=== PATIENT | male | born 1980 | race Caucasian/White ===

== ENCOUNTER 2017-05-26 18:24 | Emergency (ER) | payer BC ==
[~2017-05-26] VITALS: Ht 175.3 cm; Wt 80.0 kg
[2017-05-26 18:30] VITALS: BP 131/82; PULSE 75; RESP 16; TEMP 98.1; O2SAT 100
--- NOTE | 2017-05-26 18:59 | PD ---
HPI Chief Complaint: Fall Time Seen by Provider: 18:38 Travel History International Travel<30 days: No Contact w/Intl Traveler<30days: No Traveled to known affect area: No History of Present Illness HPI 36-year-old male presents emergency department for evaluation of low back pain and right chest wall pain after he fell off the roof yesterday. Says that he fell 9-10 feet landing on his right hip, somewhat breaking his fall with his right foot. Says his low back pain is worse with movement, decreases with rest. Says the pain as mild to moderate in nature. Pain is nonradiating. Also states that he is having some tenderness along the posterior left chest wall in the midthoracic region. Says he has discomfort with moving but denies significant pain. he denies loss of bowel or bladder function, fever, chills, history of IV drug use, saddle anesthesia. He denies any head trauma, neck pain , leg pain, weakness, radicular type of pain. [facility] Social History Alcohol Use: Yes Tobacco Use: Yes Substance Use: No Allergies-Medications (Allergen,Severity, Reaction): Coded Allergies: No Known Allergies (Verified Allergy, Unknown, 05/26/17) Reported Meds & Prescriptions Reported Meds & Active Scripts Active No Active Prescriptions or Reported Medications Review of Systems Except as stated in HPI: all other systems reviewed are Neg Physical Exam Narrative GENERAL: Well-nourished, well-developed patient. SKIN: Focused skin assessment warm/dry. HEAD: Normocephalic. EYES: No scleral icterus. No injection or drainage. EOMI, PERRLA NECK: Supple, trachea midline. No JVD or lymphadenopathy. No midline tenderness CARDIOVASCULAR: Regular rate and rhythm without murmurs, gallops, or rubs. RESPIRATORY: Breath sounds equal bilaterally. No accessory muscle use. GASTROINTESTINAL: Abdomen soft, non-tender, nondistended. No CVA tenderness MUSCULOSKELETAL: No cyanosis, or edema. BACK: No CVA tenderness. No rash. No point tenderness on palpation of the spine. He did have tenderness just to the right of the lumbar spine with some sort of loose body. I am unsure if this is chronic or not. Patient is not sure either. Grade 5/5 lower extremity strength, neurovascular intact. Left posterior chest wall-minimally tender to palpation without step-offs or deformities. BACK: Nontender without obvious deformity. No CVA tenderness. Data Data Last Documented VS Vital Signs Date Time Temp Pulse Resp B/P (MAP) Pulse Ox O2 Delivery O2 Flow Rate FiO2 05/26/17 18:30 98.1 75 16 131/82 (98) 100 Orders MDM Medical Decision Making Medical Screen Exam Complete: Yes Emergency Medical Condition: Yes Differential Diagnosis Lumbar fracture, lumbar strain, neck strain, rib fracture, thoracic strain, muscle spasms Narrative Course 36-year-old male presents emergency department for evaluation of low back pain and right chest wall pain after he fell off the roof yesterday. Says that he fell 9-10 feet landing on his right hip, somewhat breaking his fall with his right foot. Says his low back pain is worse with movement, decreases with rest. Says the pain as mild to moderate in nature. Pain is nonradiating. Also states that he is having some tenderness along the posterior left chest wall in the midthoracic region. Says he has discomfort with moving but denies significant pain. he denies loss of bowel or bladder function, fever, chills, history of IV drug use, saddle anesthesia. He denies any head trauma, neck pain , leg pain, weakness, radicular type of pain. Vital signs stable. I discussed my findings and advised on imaging studies. I initially ordered chest x-ray and lumbar CT as patient did appear to have some tenderness very close to the spine and he did appear to have some sort of loose body present. Patient noticed a loose body as well and did not know if this was chronic or not. Unfortunately, when I walked away patient left without discussing with me. I was notified by the triage nurse that patient left because he did not want imaging studies. Patient did not indicate this to me as we are discussing this. I also offered ibuprofen and Robaxin for outpatient use and patient did not want the Robaxin as he may feel drowsy. I canceled the imaging studies as he left before they were done. Patient left AGAINST MEDICAL ADVICE although I was unable to discuss the risk versus benefit of leaving AGAINST MEDICAL ADVICE. Diagnosis Primary Impression: Back pain Qualified Codes: M54.5 - Low back pain Additional Impression: Left against medical advice Referrals: Primary Care Physician Scripts No Active Prescriptions or Reported Meds Disposition: AGAINST MEDICAL ADVICE Condition: Stable Leah Flanagan May 26, 2017 18:59
[2017-05-27] MEDS ORDERED: TRAM50TA PO (00:10)
== END 2017-05-26 19:10 | disposition home or self-care (01) ==
LOC: PHEFT 18:24
DX: M54.5 Low back pain (principal); R07.89 Other chest pain; Z72.0 Tobacco use; W13.2XXA Fall from, out of or through roof, initial encounter
CPT/HCPCS: 99281

== ENCOUNTER 2017-05-26 19:19 | Emergency (ER) | payer BC ==
[2017-05-26 20:14] VITALS: BP 132/77; PULSE 77; RESP 16; TEMP 98.3; O2SAT 99
--- NOTE | 2017-05-26 21:11 | PD ---
HPI Chief Complaint: Fall Time Seen by Provider: 21:05 Travel History International Travel<30 days: No Contact w/Intl Traveler<30days: No Traveled to known affect area: No History of Present Illness HPI This patient complains of right low back pain. Yesterday he fell off a roof approximately 10 foot to the ground. He landed on grass. He has been ambulatory. He has persistent right low back pain. Severity is moderate. Worse with movement. Did not strike his head. Is no head or neck pain. His back pain is not midline. No alleviating factors. Duration is one day. [facility] Past Medical History Medical History: Denies Significant Hx Immunizations Current: Yes Past Surgical History Surgical History: No Previous Surgery Social History Alcohol Use: Yes Tobacco Use: Yes Substance Use: No Allergies-Medications (Allergen,Severity, Reaction): Coded Allergies: No Known Allergies (Verified Allergy, Unknown, 05/26/17) Reported Meds & Prescriptions Reported Meds & Active Scripts Active No Active Prescriptions or Reported Medications Review of Systems General / Constitutional: No: Fever Eyes: No: Visual changes HENT: No: Headaches Cardiovascular: No: Chest Pain or Discomfort Respiratory: No: Shortness of Breath Gastrointestinal: No: Abdominal Pain Genitourinary: No: Dysuria Musculoskeletal: Positive: Pain Skin: No Rash Neurologic: No: Weakness Psychiatric: No: Depression Endocrine: No: Polydipsia Hematologic/Lymphatic: No: Easy Bruising Physical Exam Narrative GENERAL: Well-nourished, well-developed patient with back pain . SKIN: Focused skin assessment reveals no rash and nodules. Skin is Warm and dry. HEAD: Atraumatic. Normocephalic. EYES: Pupils equal and round. No scleral icterus. No injection or drainage. ENT: No nasal bleeding or discharge. Mucous membranes pink and moist. NECK: Trachea midline. No JVD. CARDIOVASCULAR: Regular rate and rhythm. No murmur appreciated. RESPIRATORY: No accessory muscle use. Clear to auscultation. Breath sounds equal bilaterally. GASTROINTESTINAL: Abdomen soft, non-tender, nondistended. Hepatic and splenic margins not palpable. MUSCULOSKELETAL: No obvious deformities. No clubbing. No cyanosis. No edema. No midline tenderness. There is right lumbar and CVA tenderness. No bruising or swelling. NEUROLOGICAL: Awake and alert. No obvious cranial nerve deficits. Motor grossly within normal limits. Normal speech. PSYCHIATRIC: Appropriate mood and affect; insight and judgment normal. Data Data Last Documented VS Vital Signs Date Time Temp Pulse Resp B/P (MAP) Pulse Ox O2 Delivery O2 Flow Rate FiO2 05/26/17 20:14 98.3 77 16 132/77 (95) 99 Orders Orders Spine, Lumbar - Ltd (Ap & Lat) (05/26/17 ) Shoulder, Complete (>2vws) (05/26/17 ) Chest, Single Ap (05/26/17 ) Pelvis, Ap Only (Routine) (05/26/17 ) Ct Abd/Pel W Iv Contrast(Rout) (05/26/17 ) Complete Blood Count With Diff (05/26/17 21:06) Basic Metabolic Panel (Bmp) (05/26/17 21:06) Prothrombin Time / Inr (Pt) (05/26/17 21:06) Act Partial Throm Time (Ptt) (05/26/17 21:06) Iv Access Insert/Monitor (05/26/17 21:06) Iohexol 350 Inj (Omnipaque 350 Inj) (05/26/17 22:19) Labs Laboratory Tests Test 05/26/17 21:20 White Blood Count 8.3 TH/MM3 Red Blood Count 4.48 MIL/MM3 Hemoglobin 14.3 GM/DL Hematocrit 42.1 % Mean Corpuscular Volume 93.9 FL Mean Corpuscular Hemoglobin 31.9 PG Mean Corpuscular Hemoglobin Concent 34.0 % Red Cell Distribution Width 14.2 % Platelet Count 240 TH/MM3 Mean Platelet Volume 10.5 FL Neutrophils (%) (Auto) 55.8 % Lymphocytes (%) (Auto) 33.9 % Monocytes (%) (Auto) 7.5 % Eosinophils (%) (Auto) 2.0 % Basophils (%) (Auto) 0.8 % Neutrophils # (Auto) 4.6 TH/MM3 Lymphocytes # (Auto) 2.8 TH/MM3 Monocytes # (Auto) 0.6 TH/MM3 Eosinophils # (Auto) 0.2 TH/MM3 Basophils # (Auto) 0.1 TH/MM3 CBC Comment DIFF FINAL Differential Comment Prothrombin Time 11.4 SEC Prothromb Time International Ratio 1.1 RATIO Activated Partial Thromboplast Time 28.0 SEC Blood Urea Nitrogen 14 MG/DL Creatinine 0.97 MG/DL Random Glucose 85 MG/DL Calcium Level 9.3 MG/DL Sodium Level 140 MEQ/L Potassium Level 4.4 MEQ/L Chloride Level 105 MEQ/L Carbon Dioxide Level 28.4 MEQ/L Anion Gap 7 MEQ/L Estimat Glomerular Filtration Rate 88 ML/MIN [facility] Medical Decision Making Medical Screen Exam Complete: Yes Emergency Medical Condition: Yes Medical Record Reviewed: Yes Differential Diagnosis Kidney laceration, contusion, spinous process fracture, rib fracture, pelvic fracture Narrative Course I have reviewed the patient's electronic medical record. This patient had a mechanism which could lead to serious or cortical injury. Have ordered extensive trauma workup. This will include labs and a chest and pelvis x-ray and CT of abdomen and pelvis. Initial vitals are normal. He does not a trauma alert criteria. His injury is 24 hours old. I reviewed all of his x-rays. They are negative for fracture CT of abdomen and pelvis is negative for intra-abdominal organ injury. CBC and metabolic studies are normal Stable for outpatient follow-up. I wrote some tramadol for pain relief Diagnosis Primary Impression: Fall from roof as cause of accidental injury Additional Impression: Back pain Qualified Codes: M54.5 - Low back pain Additional Instructions: The patient was advised to follow up with their physician and return if they worsen. The patient was warned about potential sedation for the medications they will receive on prescription. Med/Other Pt SpecificInfo: Prescription(s) given Scripts Tramadol (Tramadol) 50 Mg Tab 50 MG PO Q6H Y for PAIN, #12 TAB 0 Refills Prov: Panda Moore MD 05/27/17 Disposition: 01 DISCHARGE HOME Condition: Stable Panda Moore MD May 26, 2017 21:11
--- NOTE | 2017-05-26 21:16 | RADRPT ---
EXAM DATE/TIME: 05/26/2017 20:49 [facility] COMPARISON: No previous studies available for comparison. INDICATIONS : Right shoulder pain post fall from roof yesterday MEDICAL HISTORY : None. SURGICAL HISTORY : None. ENCOUNTER: Initial ACUITY: 1 day PAIN SCORE: 8/10 LOCATION: Right entire shoulder FINDINGS: Multiple view examination of the right shoulder demonstrates no evidence of fracture or dislocation. The glenohumeral and acromioclavicular joints are maintained. There is normal range of motion betwe en internal and external rotation. Bony mineralization is normal. CONCLUSION: No acute disease. Christiano Corbin MD on May 26, 2017 at 21:13 Board Certified Radiologist. This report was verified electronically.
--- NOTE | 2017-05-26 21:23 | RADRPT ---
EXAM DATE/TIME: 05/26/2017 20:54 [facility] COMPARISON: No previous studies available for comparison. INDICATIONS : Lower back pain post fall from roof yesterday MEDICAL HISTORY : None. SURGICAL HISTORY : None. ENCOUNTER: Initial ACUITY: 1 day PAIN SCORE: 8/10 LOCATION: Right lumbar spine FINDINGS: Two view examination was performed. There are five non-rib bearing vertebral bodies. The vertebral bodies are in normal alignment without evidence of subluxation or scoliosis. The disc spaces are rae ntained. The pedicles are intact. Bony mineralization is normal. No fracture is identified. CONCLUSION: Normal examination for a patient of this age. Christiano Corbin MD on May 26, 2017 at 21:20 Board Certified Radiologist. This report was verified electronically.
--- NOTE | 2017-05-26 21:30 | RADRPT ---
EXAM DATE/TIME: 05/26/2017 21:11 [facility] COMPARISON: No previous studies available for comparison. INDICATIONS : Pain. Post fall from roof yesterday. MEDICAL HISTORY : None. SURGICAL HISTORY : None. ENCOUNTER: Initial ACUITY: 2 days PAIN SCORE: 1/10 LOCATION: Bilateral chest FINDINGS: A single view of the chest demonstrates the lungs to be symmetrically aerated without evidence of mas s, infiltrate or effusion. The cardiomediastinal contours are unremarkable. Osseous structures are intact. CONCLUSION: No acute disease. Christiano Corbin MD on May 26, 2017 at 21:27 Board Certified Radiologist. This report was verified electronically.
--- NOTE | 2017-05-26 21:32 | RADRPT ---
EXAM DATE/TIME: 05/26/2017 21:13 [facility] COMPARISON: No previous studies available for comparison. INDICATIONS : Pain post fall from roof yesterday. MEDICAL HISTORY : None. SURGICAL HISTORY : None. ENCOUNTER: Initial ACUITY: 2 days PAIN SCORE: 1/10 LOCATION: pelvis. FINDINGS: A single frontal view of the pelvis demonstrates no evidence of fracture. The bony pelvic ring is in tact. Bony mineralization is normal. The soft tissues are intact. CONCLUSION: Unremarkable examination of the pelvis. Christiano Corbin MD on May 26, 2017 at 21:29 Board Certified Radiologist. This report was verified electronically.
[2017-05-26 21:45] LABS: AUTOMATED NEUTROPHIL # 4.6 TH/MM3 (1.8-7.7); BASOPHIL # 0.1 TH/MM3 (0-0.2); BASOPHIL % 0.8 % (0.0-2.0); EOSINOPHIL # 0.2 TH/MM3 (0-0.4); HEMATOCRIT 42.1 % (39.0-51.0); HEMOGLOBIN 14.3 GM/DL (13.0-17.0); LYMPH % 33.9 % (9.0-44.0); LYMPHOCYTE # 2.8 TH/MM3 (1.0-4.8); MEAN CELL VOLUME 93.9 FL (80.0-100.0); MEAN CORPUSCULAR HEMOGLOBIN 31.9 PG (27.0-34.0); MEAN PLATELET VOLUME 10.5 FL (7.0-11.0); MONO % 7.5 % (0.0-8.0); MONOCYTE # 0.6 TH/MM3 (0-0.9); NEUT % 55.8 % (16.0-70.0); PLATELET COUNT 240 TH/MM3 (150-450); RED BLOOD COUNT 4.48 MIL/MM3 (4.50-5.90); RED CELL DISTRIBUTION WIDTH 14.2 % (11.6-17.2); WHITE BLOOD COUNT 8.3 TH/MM3 (4.0-11.0)
[2017-05-26 21:56] LABS: INTERNATIONAL NORMALIZED RATIO 1.1 RATIO; PROTHROMBIN TIME - PATIENT 11.4 SEC (9.8-11.6)
--- NOTE | 2017-05-26 22:04 | RADRPT ---
EXAM DATE/TIME: 05/26/2017 21:22 [facility] COMPARISON: No previous studies available for comparison. INDICATIONS : Patient fell off roof, lower back pain. IV CONTRAST: 100 cc Omnipaque 350 (iohexol) IV ORAL CONTRAST: No oral contrast ingested. RADIATION DOSE: 6.97 CTDIvol (mGy) MEDICAL HISTORY : None SURGICAL HISTORY : None. ENCOUNTER: Initial ACUITY: 1 day PAIN SCALE: 10/10 LOCATION: Abdomen. TECHNIQUE: Volumetric scanning of the abdomen and pelvis was performed. Using automated exposure control and ad justment of the mA and/or kV according to patient size, radiation dose was kept as low as reasonably achievable to obtain optimal diagnostic quality images. DICOM format image data is available electro nically for review and comparison. FINDINGS: LOWER LUNGS: The visualized lower lungs are clear. LIVER: Homogeneous density without lesion. There is no dilation of the biliary tree. No calcified gallston es. SPLEEN: Normal size without lesion. PANCREAS: Within normal limits. KIDNEYS: Normal in size and shape. There is no mass, stone or hydronephrosis. ADRENAL GLANDS: Within normal limits. VASCULAR: There is no aortic aneurysm. BOWEL/MESENTERY: The stomach, small bowel, and colon demonstrate no acute abnormality. There is no free intraperitone al air or fluid. ABDOMINAL WALL: Within normal limits. RETROPERITONEUM: There is no lymphadenopathy. BLADDER: No wall thickening or mass. REPRODUCTIVE: Within normal limits. INGUINAL: There is no lymphadenopathy or hernia. MUSCULOSKELETAL: Within normal limits for patient age. CONCLUSION: Normal examination. Christiano Corbin MD on May 26, 2017 at 21:59 Board Certified Radiologist. This report was verified electronically.
[2017-05-26 22:09] LABS: BICARBONATE 28.4 MEQ/L (21.0-32.0); CALCIUM 9.3 MG/DL (8.5-10.1); CREATININE 0.97 MG/DL (0.60-1.30)
[2017-05-26] MEDS ORDERED: IOHEXOL 350 MG/ML 10 ML VIAL (for RAD DIAG) IVCONTRAST ONE (22:19)
[2017-05-27] MEDS ORDERED: TRAM50TA PO (00:10)
== END 2017-05-27 00:21 | disposition home or self-care (01) ==
LOC: NEPD 19:19
DX: M54.5 Low back pain (principal); Z72.0 Tobacco use; W13.2XXA Fall from, out of or through roof, initial encounter
CPT/HCPCS: 71045; 72100; 72170; 73030; 74177; 80048; 85025; 85610; 85730; 99285; Q9967